=== PATIENT | female | born 1985 | race Caucasian/White ===

== ENCOUNTER → 2020-12-02 09:29 | Outpatient (CLI) | payer BC, SELFPAY ==
[2020-12-02 10:02] LABS: COVID19 -Nasal RAPID Negative (Negative)
== END ==
PROVIDERS: Visit Provider Physician Assistant
DX: Z20.822 Contact with and (suspected) exposure to COVID-19 (principal); R51.9 Headache, unspecified; J02.9 Acute pharyngitis, unspecified
CPT/HCPCS: 87635

== ENCOUNTER → 2021-07-27 16:34 | Outpatient (CLI) | payer OTHER, SELFPAY ==
[2021-07-27 16:50] LABS: Add Manual Diff / Slide Review NO; Basophils Absolute Auto 0 /uL (0-100); Basophils Percent Auto 0.7 % (0-2); Eosinophils Absolute Auto 100 /uL (0-450); Eosinophils Percent Auto 0.7 % (2-4); Hemoglobin 12.9 g/dL (12.0-16.0); Lymphocytes Absolute Auto 1800 /uL (1100-4500); Lymphocytes Percent Auto 23.8 % (25-40); Mean Corpuscular HGB Conc 33.9 % (30-36); Mean Corpuscular Hemoglobin 30.3 PG (26-34); Mean Corpuscular Volume 89.6 fL (80-100); Monocytes Absolute Auto 500 /uL (0-900); Monocytes Percent Auto 6.4 % (3-14); Neutrophils Absolute Auto 5200 /uL (1500-7000); Neutrophils Percent Auto 68.4 % (50-75); Platelet Count 270 X10^3/uL (150-400); Red Blood Cell Count 4.24 X10^6/uL (4.0-5.2); Red Cell Distribution Width 12.4 % (11.6-14.8); White Blood Cell Count 7.6 X10^3/uL (4.5-11.0)
[2021-07-28 06:11] LABS: RPR Screen Non Reactive (Non Reactive)
[2021-07-29 11:36] LABS: Varicella IgG Antibody <135 index (Immune >165)
[2021-07-29 16:54] LABS: Hepatitis B Surface Antigen NEGATIVE s/c (NEGATIVE); Rubella Antibody IgG 4.8 IU/mL (>15)
[2021-07-29 16:55] LABS: HIV 1 & 2 Ab/Ag 4th Gen Combo NEGATIVE (NEGATIVE); Hep C Virus Ab w/Reflex Quant NEGATIVE s/c (NEGATIVE)
== END ==
PROVIDERS: PCP Obstetrics & Gynecology; Referring Provider Obstetrics & Gynecology; Visit Provider Obstetrics & Gynecology
DX: Z34.00 Encounter for supervision of normal first pregnancy, unspecified trimester (principal)
CPT/HCPCS: 36415; 80055; 86787; 86803; 86850; 86900; 86901; 87389

== ENCOUNTER → 2023-09-20 13:26 | Outpatient (CLI) | payer OTHER, SELFPAY ==
--- NOTE | 2023-09-20 13:32 | DI.RAD.S_ITS ---
PROCEDURE: XR KNEE RT 3V INDICATIONS: right knee anteromedial pain/tender/swell TECHNIQUE: 3 views of the knee were acquired. COMPARISON: None. FINDINGS: Bones: No fractures or dislocations. No suspicious bony lesions. Soft tissues: No joint effusion. No suspicious soft tissue calcifications. IMPRESSION: No acute bony abnormality or significant effusion. Dictated by: Diogo King M.D. on 09/20/2023 at 14:16 Approved by: Diogo King M.D. on 09/20/2023 at 14:17
== END ==
PROVIDERS: Referring Provider Student in an Organized Health Care Education/Training Program; Visit Provider Student in an Organized Health Care Education/Training Program
DX: S83.91XA Sprain of unspecified site of right knee, initial encounter (principal); W19.XXXA Unspecified fall, initial encounter
CPT/HCPCS: 73562

== ENCOUNTER → 2025-03-10 08:58 | Outpatient (CLI) | payer OTHER, SELFPAY ==
--- NOTE | 2025-03-10 08:59 | DI.RAD.S_ITS ---
PROCEDURE: XR CHEST 2V INDICATIONS: cough TECHNIQUE: 2 views of the chest were acquired. COMPARISON: None. FINDINGS: Surgical changes and devices: None. Lungs and pleura: Lungs are clear. No pleural effusions or pneumothorax. Bronchial wall thickening is noted. Mediastinum: Mediastinal contours are normal. Heart size is normal. Bones and chest wall: No suspicious bony abnormalities. Soft tissues appear unremarkable. IMPRESSION: Bronchial wall thickening is noted. These findings are nonspecific but can be due to reactive airways disease or bronchitis. No consolidation. No acute cardiopulmonary abnormality is seen. Dictated by: Margaret Denis M.D. on 03/10/2025 at 9:58 Approved by: Margaret Denis M.D. on 03/10/2025 at 9:59
== END ==
LOC: RAD 08:59
PROVIDERS: Referring Provider Chiropractor; Visit Provider Chiropractor
DX: R05.2 Subacute cough (principal)
CPT/HCPCS: 71046